=== PATIENT | female | born 1945 | race Caucasian/White ===

== ENCOUNTER 2018-07-21 16:01 | Emergency (ER) | payer MEDICARE, OTHER ==
--- NOTE | 2018-07-21 19:15 | RAD ---
PA AND LATERAL CHEST: HISTORY: Cough. Congestion. Fever. COMPARISON: 12/29/2013 FINDINGS: Heart size is within normal limits. There are atherosclerotic changes of the aorta. The lungs are c lear of infiltrates. No significant bony findings. IMPRESSION: No active intrathoracic disease. POS: [facility]
== END 2018-07-21 19:14 | disposition home or self-care (01) ==
LOC: ERS 16:01
DX: J11.1 Influenza due to unidentified influenza virus with other respiratory manifestations (principal); J20.9 Acute bronchitis, unspecified; E10.9 Type 1 diabetes mellitus without complications
CPT/HCPCS: 71046; 87804